=== PATIENT | female | born 1930 | race Caucasian/White ===

== ENCOUNTER → 2016-08-01 | Outpatient (CLI) | payer MEDICARE ==
[~2016-08-01] MED LIST: ADVAIR 250-501 EACH IH; AMLODIPINE BESY10 MG PO; ANUCORT-HC25 MG/SUPP PR; ASPIRIN EC81 M1 PO; ASPIRIN81 M2 PO; BENTYL10 MG PO; CALCIUM + D 6001 TA1 PO; CALCIUM 600 + D1 TA1 PO; COREG PO; COREG6.25 M1 PO; COREG6.25 MG PO; CULTURELLE CAP1 EAC1 PO; DOCU SOFT100 M1 PO; FIBER1 TAB.CHEW PO; FOLIC ACID1 MG PO; FOLIC ACID800 MCG PO; HYDROCHLOROTHIA25 MG PO; HYOSCYAMINE0.375 M5 PO; KCL PO; KLOR-CON PO; LIPITOR PO; LISINOPRIL PO; LIVALO1 MG PO; LOSARTAN POTASS50 MG PO; LOVASTATIN20 M1 PO; MULTI-DAY1 TAB PO; NEURONTIN PO; NORVASC10 MG PO; PREDNISONE PO; PRINIVIL40 MG PO; PROAIR HFA8.5 GM INH; PROBIOTIC1 EAC1 PO; STOOL SOFTENER100 M1 PO; VANCOCIN HCL250 M2 PO; VITAL-D RX TABL1 TAB PO; VITAMIN D1000 UNI2 PO; VITAMIN D400 UNI2 PO
--- NOTE | ~2016-08-01 | US37 ---
[facility] A Service of [facility] RADIOLOGY TEXT RESULTS PATIENT: SAULO TIRADO LOCATION: CNIV : 32 UNIT #: [id number] AGE: [address]: Ankit Bonner MD SEX: F ORDER DR: [id number] [facility] [address] [place], [place] [address] [id number] O MR#: [id number] Acc #: [id number] NAME: SAULO TIRADO : 1930 SEX: F STUDY DATE/TIME: 08/01/2016 13:47 UNIT: CNIV ROOM: STUDY DESCRIPTION: US Carotid W/Doppler Bilateral Attending Physician: Ankit Bonner M.D. Ordering Physician: Ankit Bonner M.D. Primary Care Physician: Luc Goss MEDICAL IMAGING REPORT This report is preliminary unless electronic signature is present EXAM Carotid ultrasound Doppler bilateral. HISTORY Syncope, lightheadedness, diabetes, high blood pressure, high cholesterol, duration less than 6 months. TECHNIQUE Real time ultrasonography of the cervical carotid and vertebral arteries performed. Rivera-scale, color Doppler, Doppler pulse wave interrogation utilized. Carotid flow evaluated using methodology based on NASCET criteria. FINDINGS Atherosclerotic plaque in bilateral carotid bulbs, internal, and external carotid arteries. Peak systolic velocities on the right are as follows: Common carotid artery 0.59 m/sec, internal carotid artery 0.84 m/sec in the distal segment of the artery, external carotid artery 0.81 m/sec. There is antegrade flow in the right vertebral artery. The right IC/CC ratio is 1.42. The right Doppler pulse waveforms are normal. On the left, peak systolic velocities are as follows: Common carotid artery 0.84 m/sec, internal carotid artery 0.76 m/sec in distal segment of the artery, external carotid artery 0.76 m/sec. There is antegrade flow in the left vertebral artery and the left IC/CC ratio is 0.91. The left-side Doppler pulse waveforms are within normal limits. IMPRESSION 1. Using methodology based upon NASCET criteria, there is no evidence of hemodynamically significant luminal narrowing in the bilateral STS. [facility] A Service of [facility] RADIOLOGY TEXT RESULTS PATIENT: SAULO TIRADO LOCATION: CNIV : 32 UNIT #: [id number] AGE: [address]: Ankit Bonner MD SEX: F ORDER DR: cervical internal carotid arteries. 2. Antegrade flow in both vertebral arteries. 3. Atherosclerotic plaque in the bilateral carotid systems. See complete details above. Dictated by... Corbin Yost M.D. THIS IS AN ELECTRONICALLY VERIFIED REPORT Corbin Yost M.D. at 08/07/2016 8:26 AM YAMILET/mo TD: 08/04/2016 12:49 JOB #: [id number] MEDICAL IMAGING REPORT Page 1 of 1 COPY
--- NOTE | ~2016-08-01 | US136 ---
[facility] A Service of [facility] RADIOLOGY TEXT RESULTS PATIENT: SAULO TIRADO LOCATION: CNIV : 32 UNIT #: [id number] AGE: [address]: Ankit Bonner MD SEX: F ORDER DR: [id number] [facility] [address]. [place], [place] [address] [id number] O MR#: [id number] Acc #: [id number] NAME: SAULO TIRADO : 1930 SEX: F STUDY DATE/TIME: 08/01/2016 13:39 UNIT: CNIV ROOM: STUDY DESCRIPTION: U/L Ext Art Study Ltd Bilat Attending Physician: Ankit Bonner M.D. Ordering Physician: Ankit Bonner M.D. Primary Care Physician: Luc Goss MEDICAL IMAGING REPORT This report is preliminary unless electronic signature is present EXAM Ankle-brachial indices HISTORY Diabetes, hypertension, hyperlipidemia, syncope. Bilateral claudication bilateral lower extremity claudication x less than 6 months. FINDINGS Ankle-brachial indices performed bilaterally. All pressure measurements in mmHg. The right brachial pressure is 166. Left brachial pressure 149. Pressure gradient between the upper extremities raises the possibility hemodynamically-significant luminal narrowing in the proximal left upper extremity arterial tree. Distal right lower extremity pressures as follows: Dorsalis pedis at ankle 175, posterior tibial at ankle 153, great toe 142. Ankle-brachial index 1.05. Pulse volume recordings biphasic at the right posterior tibial artery and weakly triphasic at the right dorsalis pedis artery. Biphasic at the right great toe. On the left distal pressures as follows: Posterior tibial at ankle 120, dorsalis pedis at ankle noncompressible, great toe 123. Ankle-brachial index 0.72. Pulse volume recordings of low amplitude and irregular at the posterior tibial artery and weakly triphasic at the dorsalis pedis artery. Triphasic at the left great toe. IMPRESSION 1. Abnormal examination. There is a pressure gradient between the upper extremities, left lower than right. This raises possibility of hemodynamically-significant luminal narrowing in the proximal left upper extremity arterial tree. Correlate clinically and if warranted consider further assessment with CT angiography. 2. Right lower extremity ankle-brachial index 1.05. There appears to be STS. [facility] A Service of [facility] RADIOLOGY TEXT RESULTS PATIENT: SAULO TIRADO LOCATION: CNIV : 32 UNIT #: [id number] AGE: [address]: Ankit Bonner MD SEX: F ORDER DR: normal perfusion of the right lower extremity in the resting state. 3. The left ankle-brachial index is 0.72. 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 Level of greatest involvement cannot be determined on basis of ankle-brachial index alone. Please correlate with patient's clinical presentation. If it would assist in management, further anatomic assessment of lower extremity arteries could be pursued with CT angiography. Dictated by... Corbin Yost M.D. THIS IS AN ELECTRONICALLY VERIFIED REPORT Corbin Yost M.D. at 08/03/2016 10:44 PM YAMILET/mary carmen TD: 08/01/2016 23:49 JOB #: [id number] MEDICAL IMAGING REPORT Page 1 of 1 COPY
== END | disposition home or self-care (01) ==
LOC: CNIV 07-31 09:00
DX: I73.9 Peripheral vascular disease, unspecified (principal); R09.89 Other specified symptoms and signs involving the circulatory and respiratory systems; I65.23 Occlusion and stenosis of bilateral carotid arteries; R94.8 Abnormal results of function studies of other organs and systems
CPT/HCPCS: 93880; 93922

== ENCOUNTER → 2016-08-08 | Outpatient (CLI) | payer MEDICARE ==
--- NOTE | ~2016-08-08 | CT14 ---
[facility] A Service of [facility] RADIOLOGY TEXT RESULTS PATIENT: SAULO TIRADO LOCATION: [facility] : 32 UNIT #: [id number] AGE: [address]: Ankit Bonner MD SEX: F ORDER DR: [id number] [facility] [address] [place], [place] [address] [id number] O MR#: [id number] Acc #: [id number] NAME: SAULO TIRADO : 1930 SEX: F STUDY DATE/TIME: 08/08/2016 9:15 UNIT: [facility] ROOM: STUDY DESCRIPTION: CT Angio Abdomen and Pelvis Attending Physician: Ankit Bonner M.D. Referring Physician: Ankit Bonner M.D. Ordering Physician: Ankit Bonner M.D. Primary Care Physician: Ankit Bonner M.D. MEDICAL IMAGING REPORT This report is preliminary unless electronic signature is present EXAM CT of the abdomen and pelvis and lower extremities with IV contrast, and CT angiography of the aorta, mesenteric vessels, pelvic vasculature and lower extremity runoff. HISTORY Found to have moderate arterial occlusive disease on recent screening examination in the left lower extremity. TECHNIQUE Axial imaging of the abdomen, pelvis and lower extremities was performed with IV contrast media. This CT exam was performed with one or more of the following radiation dose reduction techniques: Automatic exposure control, adjustment of mA and/or kV according to patient size, and iterative reconstruction. 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 There is hepatic steatosis and the patient does have mild intrahepatic and extrahepatic biliary dilatation. This has decreased since the studies of July 2014. The gallbladder is absent. The common duct has a maximal diameter of 14 mm. There is an enhancing nodule in the peripheral aspect of the spleen measuring about 3 cm in diameter; it probably represents a benign hemangioma and has been stable for 2 years. The adrenal glands are normal. Pancreas appears normal. There are bilateral multiple renal cysts. No dilated or thickened loops of bowel are identified in the abdomen or pelvis. The uterus is absent. There are no pelvic masses or fluid collections. 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 Small nodes are identified in the inguinal regions. The patient has had a left total knee arthroplasty. VASCULAR FINDINGS: Diffuse atherosclerotic plaque is present in the STS. [facility] A Service of [facility] RADIOLOGY TEXT RESULTS PATIENT: SAULO TIRADO LOCATION: [facility] : 32 UNIT #: [id number] AGE: [address]: Ankit Bonner MD SEX: F ORDER DR: aorta. There is no evidence of significant narrowing in the SMA or celiac axis. The JIGAR is patent. There is plaque identified in the right renal artery narrowing it about 30%. There is plaque at the origin of the left renal artery without significant narrowing. There is plaque throughout both common iliac arteries without significant narrowing. The external iliac arteries are widely patent. There is moderate plaque in the common femoral arteries. There is diffuse plaque throughout the right SFA with 50% stenosis in the adductor canal. There is diffuse plaque in the popliteal artery. The anterior tibial artery crosses the ankle. The posterior tibial artery is occluded in the calf. On the left side, moderate plaque in the common femoral artery, diffuse plaque throughout the superficial femoral artery. There is diffuse plaque in the popliteal artery. Popliteal artery is partially obscured behind the knee. There is at least 50% to 60% narrowing of the left popliteal below the knee. The anterior tibial artery crosses the ankle. The posterior tibial artery likewise is occluded in the distal calf. Peroneal artery is seen to the ankle. CONCLUSION 1. Status post cholecystectomy with mild intra- and moderate extrahepatic biliary dilatation, which is actually improved compared with July 2014, common duct now measures about 1.4 cm. 2. Hepatic steatosis. 3. 3 cm left splenic mass likely a benign hemangioma given its stability over time. 4. Multiple bilateral renal cysts. 5. 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 6. Status post left total knee arthroplasties 7. Diffuse atherosclerotic plaque as noted above. Significant findings include a 50% narrowing of the right SFA in the adductor canal and at least 50% narrowing of the left popliteal artery below the left knee joint. The patient has essentially two-vessel runoff bilaterally with occlusion of both posterior tibial arteries in the calf. Dictated by... Corbin Hallman M.D. THIS IS AN ELECTRONICALLY VERIFIED REPORT Corbin Hallman M.D. at 08/14/2016 7:15 AM JAJA/nina TD: 08/10/2016 18:18 JOB #: [id number] MEDICAL IMAGING REPORT Page 1 of 1 COPY
--- NOTE | ~2016-08-08 | CT20 ---
[facility] A Service of [facility] RADIOLOGY TEXT RESULTS PATIENT: SAULO TIRADO [facility] UNIT #: [id number] AGE: [address]: Ankit Bonner MD SEX: F ORDER DR: [id number] [facility] [address] [place], [place] [address] [id number] O MR#: [id number] Acc #: [id number] NAME: SAULO TIRADO : 1930 SEX: F STUDY DATE/TIME: 08/08/2016 9:15 UNIT: [facility] ROOM: STUDY DESCRIPTION: CT Angio Lower Ext Fausto Attending Physician: Ankit Bonner M.D. Referring Physician: Ankit Bonner M.D. Ordering Physician: Ankit Bonner M.D. Primary Care Physician: Ankit Bonner M.D. MEDICAL IMAGING REPORT This report is preliminary unless electronic signature is present EXAM CT of the abdomen and pelvis and lower extremities with IV contrast, and CT angiography of the aorta, mesenteric vessels, pelvic vasculature and lower extremity runoff. HISTORY Found to have moderate arterial occlusive disease on recent screening examination in the left lower extremity. FINDINGS Please see CTA ABDOMEN AORTA WITH BLE report for combined text results. Dictated by... Corbin Hallman M.D. THIS IS AN ELECTRONICALLY VERIFIED REPORT Corbin Hallman M.D. at 08/14/2016 7:15 AM JAJA/nina TD: 08/10/2016 18:32 JOB #: [id number] MEDICAL IMAGING REPORT Page 1 of 1 COPY
[2016-08-08 11:51] LABS: POC - CREATININE 0.78 mg/dL (0.44-1.03); POC - GFR >60.0 mL/min (>60)
== END | disposition home or self-care (01) ==
LOC: CCAT 08:29
PROVIDERS: Family Medicine
DX: I77.1 Stricture of artery (principal); K83.8 Other specified diseases of biliary tract; K76.0 Fatty (change of) liver, not elsewhere classified; D73.89 Other diseases of spleen; N28.1 Cyst of kidney, acquired; M51.36 Other intervertebral disc degeneration, lumbar region; I70.208 Unspecified atherosclerosis of native arteries of extremities, other extremity; Z90.49 Acquired absence of other specified parts of digestive tract
CPT/HCPCS: 73706; 74174; 82565; Q9967